=== PATIENT | female | born 1935 | race African-American/Black ===

== ENCOUNTER 2019-11-21 22:31 | Emergency (ER) | payer MEDICARE ==
[~2019-11-21] VITALS: Ht 157.5 cm; Wt 91.0 kg
[~2019-11-21 22:31] MED LIST: ALLO300T PO; AMOX1TAB11 PO; ASPI325T8 PO; CEPH500C PO; DICL100G18 TP; DICL112S2 TP; DORZ10DR7 EACHEYE; GABA300C18 PO; HYDR-2765 PO; HYDR12.58 PO; HYDR50TA6 PO; LATA2.5D2 EACHEYE; LISI1TAB20 PO; METF850T8 PO; SIMV20TA18 PO
[2019-11-21] MEDS ORDERED: IV NORMAL SALINE 500ML BAG 500 ML IV SCH (22:45)
--- NOTE | 2019-11-21 22:58 | PHYS DOC ---
Past Medical History Past Medical History: Diabetes-Type II, GERD, Glaucoma, High Cholesterol, Hypertension Additional Past Medical Histor: OSTEOARTHRITIS Past Surgical History: No Surgical History Smoking Status: Never Smoker Alcohol Use: None Drug Use: None General Adult EDM: Chief Complaint: GI PROBLEM HPI: HPI: Patient is a 84 year old female who presents with complaint of rectal bleeding with abdominal pain and nausea and vomiting. Patient had started to feel leaking of fluid around her rectum and went to the bathroom and passed a very large amount of bright red blood. Patient also had found that there was a lot of blood on her mattress at home. Patient indicates that she has no history of GI bleeds. She does indicate that she has pain in her upper abdomen that she rates at a 9 out of 10. She has had some nausea and vomiting as well. She describes the pain in her abdomen is cramping.[] Review of Systems: Review of Systems: Constitutional: Denies fever or chills. [] Respiratory: Denies cough or shortness of breath. [] Cardiovascular: Denies chest pain or edema. [] GI: Complains of abdominal pain with nausea and vomiting. Complains of rectal bleeding. [] Integument: Denies rash. [] Neurologic: Denies headache, focal weakness or sensory changes. [] A full 10 point review of systems has been reviewed and is otherwise negative. Heart Score: Risk Factors: Risk Factors: DM, Current or recent (<one month) smoker, HTN, HLP, family history of CAD, obesity. Risk Scores: Score 0 - 3: 2.5% MACE over next 6 weeks - Discharge Home Score 4 - 6: 20.3% MACE over next 6 weeks - Admit for Clinical Observation Score 7 - 10: 72.7% MACE over next 6 weeks - Early Invasive Strategies Current Medications: Current Medications Medications (Trade) Dose Ordered Sig/[facility] Start Time Stop Time Status Last Admin Dose Admin Morphine Sulfate (Morphine Sulfate) 4 mg 1X ONCE 11/21/19 23:00 11/21/19 23:01 Ondansetron HCl (Zofran) 4 mg 1X ONCE 11/21/19 23:00 11/21/19 23:01 Pantoprazole Sodium (PROTONIX VIAL for IV PUSH) 40 mg 1X ONCE 11/21/19 23:00 11/21/19 23:01 Sodium Chloride 500 ml @ 500 mls/hr Q1H 11/21/19 22:45 Allergies: Allergies: Allergies Coded Allergies Type Severity Reaction Last Updated Verified No Known Drug Allergies 07/20/15 No Physical Exam: PE: Constitutional: Well developed, well nourished, no acute distress, non-toxic appearance. [] HENT: Normocephalic, atraumatic, bilateral external ears normal, oropharynx moist, no oral exudates, nose normal. [] Eyes: PERRLA, EOMI, conjunctiva normal, no discharge. [] Neck: Normal range of motion, no tenderness, supple. [] Cardiovascular: Pickett rate and rhythm[] Lungs & Thorax: Bilateral breath sounds clear to auscultation [] Abdomen: Bowel sounds normal, soft, with epigastric tenderness. [] Skin: Warm, dry, no erythema, no rash. [] Extremities: No tenderness, no cyanosis, no clubbing, ROM intact. [] Neurologic: Alert and oriented X 3, no focal deficits noted. [] EKG: EKG: [] Radiology/Procedures: Radiology/Procedures: [] Impression: PROCEDURE: CT ABDOMEN PELVIS WO CONTRAST CT abdomen and pelvis without contrast PQRS statement: CT scans at this facility use dose reduction including either automated exposure control, iterative reconstructions, and /or weight based radiation dosing via mA and kV modification when appropriate to reduce radiation dose to as low as reasonably achievable. HISTORY: Abdominal pain. Abdomen findings: Lumbar scoliosis and changes of disc disease and arthritis with spinal canal stenoses. Liver, gallbladder, pancreas, spleen, adrenal glands unremarkable. Bilateral renal cysts stable to prior imaging. There is mild bilateral renal hydronephrosis and ureteral dilation and mild periureteral edema leading up to the bilateral ureterovesical junction. No renal or ureteral calculi. Moderate volume of stool. No bowel obstruction or inflammatory change. Appendix is negative. Aortoiliac calcified plaque. No abdominal fluid. 3 cm fatty umbilical abdominal wall hernia. Pelvis findings: Abnormal distention of the bladder with large dependent hyperdensity typical of hemorrhage an underlying mass secured by the hemorrhage is not excluded. Hysterectomy. Right ovary absent or obscured by surrounding bowel loops. Left ovary unremarkable. Rectum and bones are unremarkable. IMPRESSION: 1. Prominent distention urinary bladder associated with a large dependent hyperdense bladder hematoma. An underlying bladder mass obscured by the hematoma not excluded. 2. Mild bilateral renal hydronephrosis likely due to obstruction from the hematoma at the bladder. Electronically signed by: Jus Dacosta MD (11/22/2019 1:31 AM) [id number] Course & Med Decision Making: Course & Med Decision Making Pertinent Labs and Imaging studies reviewed. (See chart for details) Patient moved to room upon arrival was evaluated by your medical staff after which an IV was established and blood work was drawn. Initial impression was that patient was having lower GI bleed; however, upon reviewing CT scan, it became apparent that patient has large amount of blood within the urinary bladder. A three-way catheter has been placed and patient has passed large amount of dark red blood mixed with clots. Patient does report improvement in discomfort at this time. At this point, given that we do not have urology coverage, patient determined appropriate for transfer to [facility]. transfer Center is been contacted and patient will be accepted in transfer. Connor Disclaimer: Dragon Disclaimer: This electronic medical record was generated, in whole or in part, using a voice recognition dictation system. Departure Departure Impression: Primary Impression: Mass of bladder Additional Impression: Gross hematuria Disposition: 02 TRANSFER [facility] Condition: IMPROVED Referrals: TAMEKA ABARCA MD (PCP) JENNIFER STEINER Jr. DO Nov 21, 2019 22:58
[2019-11-21] MEDS ORDERED: PANTOPRAZOLE IV PUSH 40 MG VIAL. IVP ONE (23:00)
[2019-11-21] MEDS ORDERED: MORPHINE SULFATE 4 MG/ML VIAL. IV ONE (23:00)
[2019-11-21] MEDS ORDERED: ONDANSETRON PF 4 MG/2 ML VIAL. IVP ONE (23:00)
[2019-11-21 23:06] LABS: BASO # 0.1 x10^3/uL (0.0-0.2); BASO % 1 % (0-3); EOS # 0.4 x10^3/uL (0.0-0.7); EOS % 2 % (0-3); HEMATOCRIT 37.2 % (36.0-47.0); HEMOGLOBIN 11.9 g/dL (12.0-15.5); LYMPH # 3.1 x10^3/uL (1.0-4.8); LYMPH % 19 % (24-48); MEAN CORPUSCULAR HEMOGLOBIN 29 pg (25-35); MEAN CORPUSCULAR HGB CONC 32 g/dL (31-37); MEAN CORPUSCULAR VOLUME 92 fL (79-100); MONO # 0.7 x10^3/uL (0.0-1.1); MONO % 5 % (0-9); NEUT % 74 % (31-73); PLATELET COUNT 434 x10^3/uL (140-400); RED BLOOD COUNT 4.04 x10^6/uL (3.50-5.40); RED CELL DISTRIBUTION WIDTH 15.5 % (11.5-14.5); WHITE BLOOD COUNT 16.2 x10^3/uL (4.0-11.0)
[2019-11-21 23:09] LABS: CALCIUM 9.3 mg/dL (8.5-10.1); CREATININE 1.5 mg/dL (0.6-1.0); GFR 40.1
[2019-11-21 23:12] LABS: PROTHROMBIN TIME PATIENT 13.7 SEC (11.7-14.0)
[2019-11-21 23:15] LABS: ALBUMIN 3.4 g/dL (3.4-5.0); ALBUMIN/GLOBULIN RATIO 0.7 (1.0-1.7); TOTAL BILIRUBIN 0.3 mg/dL (0.2-1.0)
[2019-11-22] MEDS ORDERED: fentaNYL PF VIAL 100 MCG/2 ML VIAL IVP ONE
--- NOTE | 2019-11-22 01:34 | RAD ---
CT abdomen and pelvis without contrast PQRS statement: CT scans at this facility use dose reduction including either automated exposure control, iterative reconstructions, and /or weight based radiation dosing via mA and kV modification when appropriate to reduce radiation dose to as low as reasonably achievable. HISTORY: Abdominal pain. Abdomen findings: Lumbar scoliosis and changes of disc disease and arthritis with spinal canal stenoses. Liver, gallbladder, pancreas, spleen, adrenal glands unremarkable. Bilateral renal cysts stable to prior imaging. There is mild bilateral renal hydronephrosis and ureteral dilation and mild periureteral edema leading up to the bilateral ureterovesical junction. No renal or ureteral calculi. Moderate volume of stool. No bowel obstruction or inflammatory change. Appendix is negative. Aortoiliac calcified plaque. No abdominal fluid. 3 cm fatty umbilical abdominal wall hernia. Pelvis findings: Abnormal distention of the bladder with large dependent hyperdensity typical of hemorrhage an underlying mass secured by the hemorrhage is not excluded. Hysterectomy. Right ovary absent or obscured by surrounding bowel loops. Left ovary unremarkable. Rectum and bones are unremarkable. IMPRESSION: 1. Prominent distention urinary bladder associated with a large dependent hyperdense bladder hematoma. An underlying bladder mass obscured by the hematoma not excluded. 2. Mild bilateral renal hydronephrosis likely due to obstruction from the hematoma at the bladder. Electronically signed by: Jus Dacosta MD (11/22/2019 1:31 AM) [id number]
[2019-11-22 03:36] LABS: CLARITY,URINE TURBID; COLOR,URINE RED
[2019-11-22 03:47] LABS: RBC,URINE TNTC /HPF (0-2)
[2019-11-22 03:48] LABS: BACTERIA,URINE MANY /HPF (0-FEW); WBC,URINE 20-40 /HPF (0-4)
[2019-11-22 03:49] LABS: AMORPHOUS SEDIMENT,UR PRESENT /HPF
--- NOTE | 2019-11-22 05:32 | EKG ---
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
[2019-11-22 05:44] VITALS: BP 100/54
== END 2019-11-22 06:05 | disposition short-term general hospital (02) ==
LOC: ER 22:31
DX: R31.0 Gross hematuria (principal); N32.89 Other specified disorders of bladder; R11.2 Nausea with vomiting, unspecified; I10 Essential (primary) hypertension; E78.00 Pure hypercholesterolemia, unspecified; K21.9 Gastro-esophageal reflux disease without esophagitis; E11.39 Type 2 diabetes mellitus with other diabetic ophthalmic complication; H40.9 Unspecified glaucoma
CPT/HCPCS: 36415; 51702; 74176; 80053; 81001; 85025; 85610; 85730; 86850; 86900; 86901; 87086; 93005; 96374; 96375; 99285; C9113; J2270; J2405; J3010